=== PATIENT | male | born 1950 | race Caucasian/White ===

== ENCOUNTER → 2017-01-03 | Day surgery (SDC) | payer MEDICARE, OTHER ==
[~2017-01-03] VITALS: Ht 167.6 cm; Wt 90.3 kg
[~2017-01-03] MED LIST: ASPIRIN325 MG PO; COZAAR 50MG TAB50 MG PO; DITROPAN XL5 MG PO; FLOMAX 0.4 MG0.4 MG PO; IMDUR ER TAB 3030 MG PO; JANUVIA 50 MG T50 MG PO; LIPITOR TAB 2020 MG PO; LOPRESSOR 50 MG50 MG PO; METFORMIN HCL1000 MG PO; NIACIN ER1000 MG PO; PLAVIX 75 MG TA75 MG PO; PROTONIX40 MG PO; SYNTHROID88 MCG PO; TRICOR145 MG PO; VITAMIN B12-FO1 EACH PO
== END | disposition home or self-care (01) ==
LOC: OR 06:15
PROVIDERS: Internal Medicine Gastroenterology
PROC: 0DB78ZX Excision of Stomach, Pylorus, Via Natural or Artificial Opening Endoscopic, Diagnostic (ICD-10-PCS; principal; 2017-01-03 08:45)
DX: K29.70 Gastritis, unspecified, without bleeding (principal); K44.9 Diaphragmatic hernia without obstruction or gangrene; K21.9 Gastro-esophageal reflux disease without esophagitis; E11.9 Type 2 diabetes mellitus without complications; I10 Essential (primary) hypertension; E03.9 Hypothyroidism, unspecified; E66.9 Obesity, unspecified; Z68.32 Body mass index [BMI] 32.0-32.9, adult; Z86.010 Personal history of colon polyps; Z79.02 Long term (current) use of antithrombotics/antiplatelets; Z79.82 Long term (current) use of aspirin; Z79.84 Long term (current) use of oral hypoglycemic drugs; Z79.899 Other long term (current) drug therapy; Z95.1 Presence of aortocoronary bypass graft
CPT/HCPCS: 82962; J2250; J3010; J7030

== ENCOUNTER → 2020-11-02 | Day surgery (SDC) | payer MEDICARE ==
[~2020-11-02] MED LIST changes: +KEFLEX CAP 500500 MG PO; +PROSCAR 5 MG TAB5 MG PO; +VITAMIN D210 MCG PO
== END | disposition home or self-care (01) ==
LOC: OR 05:42
PROVIDERS: Internal Medicine Gastroenterology
PROC: 0DBM8ZX Excision of Descending Colon, Via Natural or Artificial Opening Endoscopic, Diagnostic (ICD-10-PCS; principal; 2020-11-02 07:30)
DX: Z12.11 Encounter for screening for malignant neoplasm of colon (principal); K64.1 Second degree hemorrhoids; K62.89 Other specified diseases of anus and rectum; K63.89 Other specified diseases of intestine; I10 Essential (primary) hypertension; I25.2 Old myocardial infarction; K21.9 Gastro-esophageal reflux disease without esophagitis; E11.9 Type 2 diabetes mellitus without complications; E03.9 Hypothyroidism, unspecified; Z20.822 Contact with and (suspected) exposure to COVID-19; Z79.01 Long term (current) use of anticoagulants; Z79.899 Other long term (current) drug therapy; Z95.1 Presence of aortocoronary bypass graft; Z86.010 Personal history of colon polyps
CPT/HCPCS: 82962; J2001; J2704; J7040; U0002